=== PATIENT | female | born 1975 | race Caucasian/White ===

== ENCOUNTER 2016-05-24 06:36 | Emergency (ER) | payer BC, OTHER ==
[2016-05-24] MEDS ORDERED: PHENAZOPYRIDINE 100 MG TABLET PO STA (06:51)
[2016-05-24] MEDS ORDERED: ONDANSETRON ODT 4 MG TABLET TL STA (06:51)
[2016-05-24] MEDS ORDERED: SULFAMETH/TRIMETH DS 800/160 MG TABLET PO STA (06:57)
[2016-05-24] MEDS ORDERED: SULFAMETH/TRIMETH DS 800/160 MG TABLET PO ONE (07:14)
[2016-05-24] MEDS ORDERED: ONDANSETRON ODT 4 MG TABLET ONE (07:14)
[2016-05-24] MEDS ORDERED: PHENAZOPYRIDINE 100 MG TABLET PO ONE (07:14)
== END 2016-05-24 07:18 | disposition home or self-care (01) ==
DX: N30.01 Acute cystitis with hematuria (principal); I10 Essential (primary) hypertension; E78.00 Pure hypercholesterolemia, unspecified; E03.9 Hypothyroidism, unspecified
CPT/HCPCS: 51798; 81001; 81025; 87077; 87086; 87181; 99283; A9270; Q0162

== ENCOUNTER 2022-04-28 13:56 | Emergency (ER) | payer OTHER ==
[2022-04-28 14:08] VITALS: BP 141/97
[2022-04-28 14:27] LABS: BILIRUBIN,URINE NEGATIVE (NEGATIVE); GLUCOSE, URINE (UA) NEGATIVE (NEGATIVE); KETONES,URINE (UA) NEGATIVE (NEGATIVE); LEUKOCYTE ESTERASE, URINE SMALL (NEGATIVE); NITRITE,URINE NEGATIVE (NEGATIVE); OCCULT BLOOD,URINE LARGE (NEGATIVE); PROTEIN,URINE 30 mg/dL (NEGATIVE); UROBILINOGEN,URINE 0.2 (NORMAL) E.U./dL (NORMAL)
[2022-04-28] MEDS ORDERED: NITROFURANTOIN MACRO 100 MG CAPSULE PO STA (14:32)
[2022-04-28] MEDS ORDERED: PHENAZOPYRIDINE 100 MG TABLET PO STA (14:32)
--- NOTE | 2022-04-28 14:35 | ED Physician Documentation ---
History of Present Illness - Stated complaint Stated Complaint: FEMALE - Chief complaint Chief Complaint: General - History obtained from History obtained from: Patient - History of Present Illness Timing: Yesterday Pain level max: 4 Pain level now: 2 - Additonal information Additional information: 47-year-old female presents to the emergency department complaint of UTI symptoms since yesterday. Pain and burning with urination. Frequency. No hematuria. Feels similar to prior UTIs. No back pain. No fevers. No nausea or vomiting. Review of Systems Constitutional: denies: Fever, Chills GI: denies: Abdominal Pain, Vomiting, Diarrhea Skin: denies: Rash PD PAST MEDICAL HISTORY - Past Medical History Cardiovascular: Hypertension, High cholesterol Endocrine/Autoimmune: HyPOthyroidism Psych: Depression, Anxiety - Past Surgical History Past Surgical History: Yes - Present Medications Home Medications: Ambulatory Orders Medication Instructions Recorded Confirmed Fexofenadine HCl [Terri] 180 mg PO DAILY 11/02/12 05/24/16 Lisinopril 10 mg PO DAILY 11/02/12 05/24/16 lamoTRIgine [Lamictal] 1 tab PO BID 05/19/14 05/24/16 Methadone HCl 50 mg PO BID 05/24/16 05/24/16 Phenazopyridine [Pyridium] 200 mg PO TID PRN #15 tablet 05/24/16 Sulfamethox/Trimeth 800/160 1 each PO BID #10 tablet 05/24/16 [Bactrim Ds 800/160] oxyCODONE/ACET 5/325 [Percocet 5 1 tab PO Q6HR PRN 05/24/16 05/24/16 mg/325 mg] Nitrofurantoin [Macrobid] 100 mg PO BID #10 cap 04/28/22 Phenazopyridine HCl [Pyridium] 200 mg PO TID PRN #6 tablet 04/28/22 - Allergies Allergies/Adverse Reactions: Allergies Allergy/AdvReac Type Severity Reaction Status Date / Time No Known Drug Allergies Allergy Verified 05/24/16 06:43 - Social History Does the pt smoke?: No Smoking Status: Never smoker Does the pt drink ETOH?: No Does the pt have substance abuse?: No - Immunizations Immunizations are current?: Yes - POLST Patient has POLST: No PD ED PE NORMAL - Vitals Vital signs reviewed: Yes - General General: Alert and oriented X 3, No acute distress - HEENT HEENT: Moist mucous membranes - Respiratory Respiratory: No respiratory distress - Abdomen Abdomen: Soft, Non tender, Non distended - Back Back: No CVA TTP - Derm Derm: Warm and dry - Neuro Neuro: Alert and oriented X 3 Results - Vitals Vitals: Vital Signs - 24 hr 04/28/22 14:03 Temperature 36.8 C Heart Rate 95 Respiratory 18 Rate Blood Pressure 141/97 H O2 Saturation 97 Oxygen O2 Source Room air - Labs Labs: Laboratory Tests 04/28/22 14:21 Urine Color DARK YELLOW Urine Clarity HAZY Urine pH 6.0 Ur Specific [place] >=1.030 H Urine Protein 30 H Urine Glucose (UA) NEGATIVE Urine Ketones NEGATIVE Urine Occult Blood LARGE H Urine Nitrite NEGATIVE Urine Bilirubin NEGATIVE Urine Urobilinogen 0.2 (NORMAL) Ur Leukocyte Esterase SMALL H Urine RBC 11-25 H Urine WBC >25 H Ur Squamous Epith Cells FEW Squamous Urine Bacteria Moderate H Ur Microscopic Review INDICATED Urine Culture Comments INDICATED Urine HCG, Qual NEGATIVE PD Medical Decision Making - ED course Complexity details: reviewed results, considered differential, d/w patient Reviewed Lab Results: Urinalysis is consistent with UTI given positive white blood cells positive leuk esterase and positive bacteria. ED course: Patient with a UTI. We will place on antibiotics and Pyridium. She is well- appearing, nontoxic. Afebrile. No evidence of pyelonephritis. Patient counseled regarding signs and symptoms for which I believe and urgent re- evaluation would be necessary. Patient with good understanding of and agreement to plan and is comfortable going home at this time This document was made in part using voice recognition software. While efforts are made to proofread this document, sound alike and grammatical errors may occur. Departure - Departure Disposition: 01 Home, Self Care Clinical Impression: Urinary tract infection Qualifiers: Urinary tract infection type: acute cystitis Hematuria presence: without hematuria Qualified Code(s): N30.00 - Acute cystitis without hematuria Condition: Good Instructions: ED UTI Cystitis Female Follow-Up: your,doctor as needed [Other] Prescriptions: Nitrofurantoin [Macrobid] 100 mg PO BID #10 cap Phenazopyridine HCl [Pyridium] 200 mg PO TID PRN #6 tablet PRN Reason: dysuria Comments: Your prescriptions were sent to [facility]. Please take all antibiotics until gone. Please return if you worsen. Discharge Date/Time: 04/28/22 14:51
[2022-04-28 14:50] LABS: CLARITY,URINE HAZY (CLEAR); HCG UR QUAL NEGATIVE
[2022-04-28 14:51] LABS: BACTERIA,URINE Moderate /HPF (None Seen); SQUAMOUS EPITHELIAL CELL,UR FEW Squamous (<= Few); WBC,URINE >25 /HPF (0-5)
== END 2022-04-28 14:51 | disposition home or self-care (01) ==
LOC: ED 13:56
DX: N30.00 Acute cystitis without hematuria (principal)
CPT/HCPCS: 81001; 81025; 87086; 99283; A9270; 81003